=== PATIENT | male | born 2000 | race Caucasian/White ===

== ENCOUNTER 2020-07-20 23:17 | Emergency (ER) | payer OTHER, SELFPAY ==
--- NOTE | ~2020-07-20 | XR_ITS ---
EXAMINATION: XR foot RT min 3V DATE: 07/21/2020 00:06 INDICATION: Right foot pain TECHNIQUE: Dorsoplantar, lateral, and 2 oblique views of the right foot were obtained. COMPARISON: None. FINDINGS: There is no fracture, dislocation, or subluxation. The bones, soft tissues, and joint space s are normal. IMPRESSION: 1. No acute osseous abnormality. Reviewed, dictated and finalized at location A.
[2020-07-20 23:31] VITALS: BP 140/81; PULSE 91; RESP 20; TEMP 36.9; O2SAT 99
--- NOTE | 2020-07-21 02:16 | ED.LOWEXIN ---
HPI - Extremity Injury (Lower) General Chief Complaint: Extremity Injury, Lower Stated Complaint: r foot pain Time Seen by Provider: 07/21/20 01:27 History of Present Illness HPI Narrative: Patient is a 20-year-old male who presents ER with right second toe pain. Patient was wrestling in a pool earlier today when he had sudden onset pain in the toe. Has difficulty ambulating because of the pain. There is bruising around the second MTP. No numbness or tingling. Related Data Home Medications Medication Instructions Recorded Confirmed No Home Medications 07/20/20 07/20/20 Allergies Allergy/AdvReac Type Severity Reaction Status Date / Time Sulfa (Sulfonamide Allergy Unknown Verified 07/20/20 23:33 Antibiotics) Review of Systems Musculoskeletal: Musculoskeletal: Reports arthralgias, Reports joint swelling and Denies muscle cramps Integumentary/Breasts: Comments: Positive for bruising Neurologic: Denies focal weakness and Denies numbness PMFSH Past Medical History Medical History (Updated 07/21/20 @ 02:19 by Boyd Singer MD) Healthy adult male Surgical History Surgical History (Updated 07/21/20 @ 02:17 by Boyd Singer MD) No history of previous surgery Social History Social History (Updated 07/21/20 @ 02:17 by Boyd Singer MD) Smoking status: Never smoker Alcohol intake: current Exam Narrative: Exam Narrative: GENERAL: Well-appearing, well-nourished, and in no acute distress. HEAD: Normocephalic, atraumatic. EXTREMITIES: Focused exam of the right foot shows bruising at the second MTP over the dorsal and plantar aspect. Limited flexion and of the toe due to pain. Tender palpation directly over the joint and slightly proximal to the joint. No other tenderness at the other MTPs. No ankle tenderness. SKIN: Warm, dry, no rash. NEURO: No focal deficits. Alert and oriented x3. PSYCH: Normal mood and affect. Course Course Emergency Course: X-rays negative. Placed in postop shoe. Discharge home. Vital Signs Vital signs: Vital Signs Temperature 98.4 F 07/20/20 23:31 Pulse Rate 91 07/20/20 23:31 Respiratory Rate 20 07/20/20 23:31 Blood Pressure 140/81 07/20/20 23:31 Pulse Oximetry 99 07/20/20 23:31 Temperature 98.4 F 07/20/20 23:31 Pulse Rate 91 07/20/20 23:31 Respiratory Rate 20 07/20/20 23:31 Blood Pressure 140/81 07/20/20 23:31 Pulse Oximetry 99 07/20/20 23:31 MDM - Extremity Injury (Lower) Imaging Data My impression: X-ray right foot: Negative for acute process. Discharge Plan Discharge Clinical Impression: Sprain of toe, second, right Patient Disposition: Home, Self-Care Condition: Stable Instructions: Sprain (ED), R.I.C.E. Treatment (ED) Additional Instructions: Return the ER if you have chest pain or shortness of breath, you have redness to your foot, you develop fever over 100.4 ?F, you have additional concerns. Take ibuprofen and Tylenol as needed for pain. Prescriptions: No Action No Home Medications RF: 0 Follow-up/Referrals: PHYSICIAN NOT ON STAFF,NONSTAFF [Primary Care Provider] - 1 Week
[2020-07-21 02:32] VITALS: BP 129/73; PULSE 79; RESP 18; O2SAT 99
== END 2020-07-21 02:34 | disposition home or self-care (01) ==
PROVIDERS: Emergency Provider Emergency Medicine
DX: S93.504A Unspecified sprain of right lesser toe(s), initial encounter (principal); X58.XXXA Exposure to other specified factors, initial encounter; Y93.83 Activity, rough housing and horseplay
CPT/HCPCS: 73630; 99283; A9270